=== PATIENT | male | born 1950 | race Caucasian/White ===

== ENCOUNTER 2016-06-04 08:29 | Inpatient (IN) | payer BC ==
[~2016-06-04] VITALS: Ht 162.6 cm; Wt 70.5 kg
[2016-06-12] VITALS (12 sets, daily range): BP systolic 130–147; BP diastolic 71–85; PULSE 75–106; TEMP 97.2–98.7
[2016-06-12] MEDS ORDERED: COLACE 100100 MG/CAP PO (08:18)
[2016-06-12 08:19] LABS: HEMATOCRIT 43.7 % (42.0-52.0); HEMOGLOBIN 14.8 g/dl (13.5-18.0); MEAN CELL VOLUME 89 fl (80.0-100.0); MEAN CORPUSCULAR HEMOGLOBIN 30 pg (27.0-31.0); MEAN CORPUSCULAR HGB CONC 34 g/dl (33.0-37.0); MEAN PLATELET VOLUME 9.4 fl (7.4-10.4); PLATELET COUNT 213 K/mm3 (130-400); RED BLOOD COUNT 4.92 M/mm3 (4.20-5.60); REDCELL DISTRIBUTION WIDTH-CV 12.1 % (11.5-14.5); WHITE BLOOD COUNT 5.4 K/mm3 (4.8-10.8)
[2016-06-12] MEDS ORDERED: CARDURA XL8 MG PO (08:19)
[2016-06-12] MEDS ORDERED: PROTONIX 40MG T40 MG PO (08:20)
[2016-06-12] MEDS ORDERED: ATIVAN 0.50.5 MG/TAB PO (08:20)
[2016-06-12] MEDS ORDERED: PROSVENT PO (08:22)
[2016-06-12] MEDS ORDERED: CIALIS5 MG PO (08:23)
[2016-06-12] MEDS ORDERED: KRATOM PO (08:24)
[2016-06-12] MEDS ORDERED: CARDURA 8MG TAB8 MG PO (14:41)
[2016-06-12 15:56] LABS: HEMATOCRIT 38.8 % (42.0-52.0); HEMOGLOBIN 13.2 g/dl (13.5-18.0); MEAN CELL VOLUME 90 fl (80.0-100.0); MEAN CORPUSCULAR HEMOGLOBIN 31 pg (27.0-31.0); MEAN CORPUSCULAR HGB CONC 34 g/dl (33.0-37.0); MEAN PLATELET VOLUME 9.6 fl (7.4-10.4); PLATELET COUNT 180 K/mm3 (130-400); RED BLOOD COUNT 4.33 M/mm3 (4.20-5.60); REDCELL DISTRIBUTION WIDTH-CV 12.3 % (11.5-14.5); WHITE BLOOD COUNT 11.5 K/mm3 (4.8-10.8)
[2016-06-12 16:01] LABS: ADD PATHOLOGY DIFF REVIEW NO
[2016-06-12 16:10] LABS: CALCIUM 8.7 mg/dL (8.4-10.2); CREATININE, serum 1.17 mg/dL (0.66-1.25); POTASSIUM 4.1 mmol/L (3.4-5.0)
[2016-06-12 16:47] LABS: BAND 6 % (0-10); EOSINOPHIL 1 % (0-4); NEUTROPHILS 91 % (42.0-75.2); PLATELET ESTIMATE NORMAL (NORMAL); TOTAL CELLS COUNTED 100
[2016-06-13] VITALS (10 sets, daily range): BP systolic 129–157; BP diastolic 68–87; PULSE 68–92; TEMP 97.1–99.7
[2016-06-13 07:36] LABS: BASO % 0.1 % (0.0-2.0); EOS % 0.1 % (0-4.0); GRAN # 8.4 (1.4-6.5); GRAN % 80.7 % (42.2-75.2); HEMATOCRIT 38.2 % (42.0-52.0); HEMOGLOBIN 12.6 g/dl (13.5-18.0); LYMPH % 9.5 % (20.0-51.0); MEAN CELL VOLUME 91 fl (80.0-100.0); MEAN CORPUSCULAR HEMOGLOBIN 30 pg (27.0-31.0); MEAN CORPUSCULAR HGB CONC 33 g/dl (33.0-37.0); MEAN PLATELET VOLUME 9.9 fl (7.4-10.4); MONO % 9.3 % (1.7-9.3); PLATELET COUNT 182 K/mm3 (130-400); RED BLOOD COUNT 4.22 M/mm3 (4.20-5.60); REDCELL DISTRIBUTION WIDTH-CV 12.4 % (11.5-14.5); WHITE BLOOD COUNT 10.4 K/mm3 (4.8-10.8)
[2016-06-13 07:45] LABS: CALCIUM 8.8 mg/dL (8.4-10.2); CREATININE, serum 1.52 mg/dL (0.66-1.25)
[2016-06-13 07:53] LABS: POTASSIUM 4.4 mmol/L (3.4-5.0)
[2016-06-14] VITALS (10 sets, daily range): BP systolic 142–167; BP diastolic 71–94; PULSE 101–120; TEMP 96.8–99.3
[2016-06-14 09:49] LABS: INR 1.1 (0.8-3.0); PROTHROMBIN TIME 12.7 SECONDS (9.7-12.8)
[2016-06-14 09:50] LABS: PARTIAL THROMBOPLASTIN TIME 28.8 SECONDS (26.0-37.0)
[2016-06-14 09:57] LABS: BASO % 0.1 % (0.0-2.0); EOS % 0.1 % (0-4.0); GRAN # 6.4 (1.4-6.5); GRAN % 85.1 % (42.2-75.2); HEMATOCRIT 38.3 % (42.0-52.0); HEMOGLOBIN 12.5 g/dl (13.5-18.0); LYMPH # 0.5 (1.2-3.4); LYMPH % 6.4 % (20.0-51.0); MEAN CELL VOLUME 91 fl (80.0-100.0); MEAN CORPUSCULAR HEMOGLOBIN 30 pg (27.0-31.0); MEAN CORPUSCULAR HGB CONC 33 g/dl (33.0-37.0); MEAN PLATELET VOLUME 9.9 fl (7.4-10.4); MONO # 0.6 (0.1-0.6); MONO % 8.2 % (1.7-9.3); PLATELET COUNT 169 K/mm3 (130-400); REDCELL DISTRIBUTION WIDTH-CV 12.2 % (11.5-14.5); WHITE BLOOD COUNT 7.5 K/mm3 (4.8-10.8)
[2016-06-14 10:00] LABS: ADJUSTED CALCIUM 8.9 mg/dL (8.4-10.2); ALBUMIN 3.8 gm/dL (3.5-5.0); CALCIUM 8.7 mg/dL (8.4-10.2); CREATININE, serum 1.3 mg/dL (0.66-1.25); MAGNESIUM 2.3 mg/dL (1.6-2.3); POTASSIUM 4.5 mmol/L (3.4-5.0); TOTAL PROTEIN 6.9 gm/dL (6.4-8.2)
[2016-06-15] VITALS (8 sets, daily range): BP systolic 131–166; BP diastolic 72–91; PULSE 92–106; TEMP 98.2–98.8
[2016-06-15 09:36] LABS: CALCIUM 8.6 mg/dL (8.4-10.2); CREATININE, serum 1.32 mg/dL (0.66-1.25); MAGNESIUM 2.6 mg/dL (1.6-2.3); POTASSIUM 4.5 mmol/L (3.4-5.0)
== END 2016-06-15 16:55 | disposition home or self-care (01) | DRG 657 ==
LOC: INPTSU 06-12 07:31 → SURG 06-12 07:31
PROVIDERS: Internal Medicine; Nurse Anesthetist, Certified Registered; Urology
PROC: 0TB14ZZ Excision of Left Kidney, Percutaneous Endoscopic Approach (ICD-10-PCS; 2016-06-12)
PROC: 8E0W4CZ Robotic Assisted Procedure of Trunk Region, Percutaneous Endoscopic Approach (ICD-10-PCS; 2016-06-12)
PROC: 0TT14ZZ Resection of Left Kidney, Percutaneous Endoscopic Approach (ICD-10-PCS; principal; 2016-06-12 09:30)
DX: C64.2 Malignant neoplasm of left kidney, except renal pelvis (principal); F10.239 Alcohol dependence with withdrawal, unspecified; N28.1 Cyst of kidney, acquired
CPT/HCPCS: 99223; 99232-AI; A4315; A9284; C1713; J0690; J1100; J1170; J1650; J2060; J2270; J2405; J2704; J3010; J7030; J7120

== ENCOUNTER → 2016-06-11 | Outpatient (CLI) | payer BC ==
[~2016-06-11] MED LIST: ATIVAN 0.50.5 MG/TAB PO; CARDURA 8MG TAB8 MG PO; CARDURA XL8 MG PO; CIALIS5 MG PO; COLACE 100100 MG/CAP PO; KRATOM PO; PROSVENT PO; PROTONIX 40MG T40 MG PO
== END ==
LOC: COL.LAB 08:43
DX: Z53.9 Procedure and treatment not carried out, unspecified reason (principal)